=== PATIENT | male | born 1995 | race Caucasian/White ===

== ENCOUNTER 2017-08-11 06:40 | Observation (INO) | payer MEDICAID, OTHER ==
[~2017-08-11] VITALS: Ht 167.6 cm; Wt 59.0 kg
[2017-08-11 06:43] VITALS: BP 120/60; PULSE 64; RESP 16; TEMP 97.4; O2SAT 100
[2017-08-11] MEDS ORDERED: SODIUM CHLORIDE 0.9% FLUSH 10 ML FLUSH IVF PRN (07:15)
--- NOTE | 2017-08-11 07:19 | PD ---
HPI Chief Complaint: Syncope/Near-Syncope Time Seen by Provider: 07:09 Travel History International Travel<30 days: No Contact w/Intl Traveler<30days: No Traveled to known affect area: No History of Present Illness HPI Patient is a 22-year-old otherwise healthy male presents emergency department for evaluation of syncopal episode occurred approximately an hour prior to presentation. Patient states he got up with some left lower quadrant abdominal gas pressure and went to the bathroom, after urinating he palpated his abdomen is standing position in the bathroom, he felt like he was going to faint and then started walking back towards the bed when he fell and next thing he knew he awoke on the ground. [place] by his girlfriend today states he was only out for a few seconds. Denies any chest pain shortness of breath nausea vomiting diarrhea blood in the stool abdominal cramping fevers cough or congestion. Symptoms have resolved, context as above, associated signs and symptoms as above , location is [facility] Past Medical History GERD: Yes Integumentary: Yes (scabies) Tetanus Vaccination: < 5 Years Influenza Vaccination: No Past Surgical History Cholecystectomy: Yes Social History Alcohol Use: No Tobacco Use: No Substance Use: Yes (Marijuana) Allergies-Medications (Allergen,Severity, Reaction): Coded Allergies: No Known Allergies (Unverified , 02/24/14) Reported Meds & Prescriptions Reported Meds & Active Scripts Active No Active Prescriptions or Reported Medications Physical Exam Narrative GENERAL: Well-developed but thin in no obvious distress SKIN: Focused skin assessment warm/dry. There is a small abrasion/excoriation over the right brow, superficial in nature not requiring any repair HEAD: Atraumatic. Normocephalic. EYES: Pupils equal and round. No scleral icterus. No injection or drainage. ENT: No nasal bleeding or discharge. Mucous membranes pink and moist. NECK: Trachea midline. No JVD. CARDIOVASCULAR: Regular rate and rhythm. No murmur appreciated. No murmurs or gallops or rubs. RESPIRATORY: No accessory muscle use. Clear to auscultation. Breath sounds equal bilaterally. GASTROINTESTINAL: Abdomen soft, non-tender, nondistended. Hepatic and splenic margins not palpable. MUSCULOSKELETAL: No obvious deformities. No clubbing. No cyanosis. No edema. NEUROLOGICAL: Awake and alert. Cranial nerves II through XII are grossly intact and nonfocal, 5 out of 5 strength in all 4 extremities. Cerebellar testing negative PSYCHIATRIC: Appropriate mood and affect; insight and judgment normal. Data Data Last Documented VS Vital Signs Date Time Temp Pulse Resp B/P (MAP) Pulse Ox O2 Delivery O2 Flow Rate FiO2 08/11/17 06:43 97.4 64 16 120/60 (80) 100 Orders Orders Electrocardiogram (08/11/17 07:15) Complete Blood Count With Diff (08/11/17 07:15) Comprehensive Metabolic Panel (08/11/17 07:15) Troponin I (08/11/17 07:15) Ecg Monitoring (08/11/17 07:15) Iv Access Insert/Monitor (08/11/17 07:15) Oximetry (08/11/17 07:15) Sodium Chloride 0.9% Flush (Ns Flush) (08/11/17 07:15) Troponin I (08/11/17 09:34) Admit Order (Ed Use Only) (08/11/17 ) Labs Laboratory Tests Test 08/11/17 07:35 08/11/17 09:40 White Blood Count 5.2 TH/MM3 Red Blood Count 4.34 MIL/MM3 Hemoglobin 13.6 GM/DL Hematocrit 38.2 % Mean Corpuscular Volume 87.8 FL Mean Corpuscular Hemoglobin 31.2 PG Mean Corpuscular Hemoglobin Concent 35.5 % Red Cell Distribution Width 13.0 % Platelet Count 168 TH/MM3 Mean Platelet Volume 7.7 FL Neutrophils (%) (Auto) 40.9 % Lymphocytes (%) (Auto) 47.8 % Monocytes (%) (Auto) 9.2 % Eosinophils (%) (Auto) 1.8 % Basophils (%) (Auto) 0.3 % Neutrophils # (Auto) 2.1 TH/MM3 Lymphocytes # (Auto) 2.5 TH/MM3 Monocytes # (Auto) 0.5 TH/MM3 Eosinophils # (Auto) 0.1 TH/MM3 Basophils # (Auto) 0.0 TH/MM3 CBC Comment DIFF FINAL Differential Comment Blood Urea Nitrogen 14 MG/DL Creatinine 0.84 MG/DL Random Glucose 104 MG/DL Total Protein 7.2 GM/DL Albumin 4.0 GM/DL Calcium Level 8.7 MG/DL Alkaline Phosphatase 74 U/L Aspartate Amino Transf (AST/SGOT) 14 U/L Alanine Aminotransferase (ALT/SGPT) 18 U/L Total Bilirubin 0.3 MG/DL Sodium Level 140 MEQ/L Potassium Level 3.8 MEQ/L Chloride Level 105 MEQ/L Carbon Dioxide Level 28.0 MEQ/L Anion Gap 7 MEQ/L Estimat Glomerular Filtration Rate 113 ML/MIN Troponin I LESS THAN 0.02 NG/ML LESS THAN 0.02 NG/ML MDM Medical Decision Making Medical Screen Exam Complete: Yes Emergency Medical Condition: Yes Interpretation(s) Patient EKG reviewed by me, normal sinus rhythm, normal axis and early R-wave transition. There is some ST segment elevation in V2 and V3, more pronounced in V2 with an upsloping pattern, machine interpretation is type III Brugada pattern. This was discussed with Dr. Perez and is unclear as to whether or not this actually represents Brugada. Certainly this is a nonischemic. Differential Diagnosis ACS, PA, arrhythmia, anemia. Clinically significant head injury is excluded by Chappell CT head rules, neck injury excluded by Nexus criteria. Narrative Course Patient room to the emergency primary, further history states that the patient has been having intermittent dizziness and weakness over the past few months, has been very close to passing out in the past but has never passed out before this. His symptoms certainly could be attributed to a vasovagal reaction however this is not 100% as the patient was not bearing down at the time of the interval episode. It did occur shortly after he urinated and could represent micturition syncope. However after discussing with Dr. Perez we agree that the safest course of the action would be for 23 hour observation for further workup and cardiology consult, this recommendation was discussed with the patient and he is agreeable Diagnosis Primary Impression: Syncope Admitting Information Admitting Physician Requests: Observation Scripts No Active Prescriptions or Reported Meds Condition: Stable Regis Dexter MD Aug 11, 2017 07:19
[2017-08-11 07:51] LABS: AUTOMATED NEUTROPHIL # 2.1 TH/MM3 (1.8-7.7); BASOPHIL % 0.3 % (0.0-2.0); EOSINOPHIL # 0.1 TH/MM3 (0-0.4); EOSINOPHIL % 1.8 % (0.0-4.0); HEMATOCRIT 38.2 % (39.0-51.0); HEMOGLOBIN 13.6 GM/DL (13.0-17.0); LYMPH % 47.8 % (9.0-44.0); LYMPHOCYTE # 2.5 TH/MM3 (1.0-4.8); MEAN CELL VOLUME 87.8 FL (80.0-100.0); MEAN CORPUSCULAR HEMOGLOBIN 31.2 PG (27.0-34.0); MEAN CORPUSCULAR HGB CONC 35.5 % (32.0-36.0); MEAN PLATELET VOLUME 7.7 FL (7.0-11.0); MONO % 9.2 % (0.0-8.0); MONOCYTE # 0.5 TH/MM3 (0-0.9); NEUT % 40.9 % (16.0-70.0); PLATELET COUNT 168 TH/MM3 (150-450); RED BLOOD COUNT 4.34 MIL/MM3 (4.50-5.90); WHITE BLOOD COUNT 5.2 TH/MM3 (4.0-11.0)
[2017-08-11 08:04] LABS: ALT (GPT) 18 U/L (12-78); AST (GOT) 14 U/L (15-37); BLOOD UREA NITROGEN 14 MG/DL (7-18); CALCIUM 8.7 MG/DL (8.5-10.1); CHLORIDE 105 MEQ/L (98-107); CREATININE 0.84 MG/DL (0.60-1.30); GLOMERULAR FILTRATION RATE 113 ML/MIN (>89); GLUCOSE,RANDOM 104 MG/DL (74-106); SODIUM (NA) 140 MEQ/L (136-145)
[2017-08-11 08:09] LABS: ALKALINE PHOSPHATASE 74 U/L (45-117); TOTAL BILIRUBIN ADULT 0.3 MG/DL (0.2-1.0); TOTAL PROTEIN 7.2 GM/DL (6.4-8.2); TROPONIN I LESS THAN 0.02 NG/ML (0.02-0.05)
--- NOTE | 2017-08-11 10:31 | HHI.HP ---
HPI Service Family Medicine Primary Care Physician No Primary Care Physician Admission Diagnosis Syncope, Possible Brugada Diagnoses: International Travel<30 Days: No Contact w/Intl Traveler<30days: No Known Affected Area: No History of Present Illness Patient is a 22-year-old male with no significant past medical history presented to the ED today after expressing a syncopal episode this morning around 6 AM. Patient stated he had not slept all night due to work. The syncopal episode occurred as he was coming back from the bathroom to his bedroom. He reports feeling lightheaded and "seeing stars" right before he fainted. Denies ever experiencing a syncopal episodes in the past. Patient's is alert and oriented x3. Pt was unconscious for less than a minute according to girlfriend who was present when the syncopal episode occurred. Denies CP, SOB, convulsions, tongue biting, shaking/jerking of extremities, bowel or urine incontinence. Of note, patient's mother stated that his sister suffers from AV heart block (does not know the type) but his sister has not received any medical intervention for the heart condition. Mother also stated that she has been told in the past that she has abnormal beats. Patient also mentioned that for the past year he has been experiencing chest pain that occurs on and off about every 2 wks lasting a couple of minutes with no other associated sxs ( currently denies CP). Review of Systems Constitutional: DENIES: Fatigue, Fever, Weight loss, Chills Eyes: COMPLAINS OF: Blurred vision Ears, nose, mouth, throat: DENIES: Nasal discharge, Throat pain Respiratory: DENIES: Cough, Shortness of breath Cardiovascular: COMPLAINS OF: Chest pain (not today, CP more than a 1 yr-- within 2 wks every other day, last for couple min no other sxs), Syncope, DENIES : Palpitations, Lower Extremity Edema Gastrointestinal: COMPLAINS OF: Abdominal pain, Diarrhea (chronic issues of loose stools), Nausea, DENIES: Constipation, Vomiting Genitourinary: DENIES: Urinary frequency, Hematuria, Dysuria Integumentary: DENIES: Rash Hematologic/lymphatic: DENIES: Bruising Neurologic: DENIES: Headache, Localized weakness, Seizures Past Family Social History Past Medical History none Past Surgical History gallbladder removed, 11/2013 Reported Medications Reported Meds & Active Scripts Active No Active Prescriptions or Reported Medications Allergies: Coded Allergies: No Known Allergies (Unverified Allergy, Unknown, 08/11/17) Active Ordered Medications Current Medications Medications (Trade) Dose Ordered Sig/Bhargav Route Start Time Stop Time Status Last Admin (NS Flush) 2 ml UNSCH PRN IVF 08/11/17 07:15 Family History Father- CA Sister- AV heart block Patient stated breast CA runs in his family, aunts Social History -Patient lives with mother, sister -He works time buyer, as class a lineman at [employer] -smokes marijuana, 3 times/month, 1 joint -alcohol, 3 beers, 3 times a month, . Does admit to episodes of bench drinking, not often per pt. -Denies illicit drug use. Physical Exam Vital Signs Vital Signs Date Time Temp Pulse Resp B/P (MAP) Pulse Ox O2 Delivery O2 Flow Rate FiO2 08/11/17 06:43 97.4 64 16 120/60 (80) 100 Physical Exam GENERAL: This is a well-nourished, well-developed patient, in no apparent distress. SKIN: No rashes, ecchymoses or lesions. Cool and dry. Small laceration above Right eye brow, that occurred after his fall, repaired in ED. HEAD: Atraumatic. Normocephalic. No temporal or scalp tenderness. EYES: Pupils equal round and reactive. Extraocular motions intact. No scleral icterus. No injection or drainage. ENT: Nose without bleeding, purulent drainage or septal hematoma. Throat without erythema, tonsillar hypertrophy or exudate. Uvula midline. Airway patent. NECK: Trachea midline. No JVD or lymphadenopathy. Supple, nontender, no meningeal signs. CARDIOVASCULAR: Normal S1 and S2. murmurs, gallops, or rubs. RESPIRATORY: Clear to auscultation. Breath sounds equal bilaterally. No wheezes , rales, or rhonchi. GASTROINTESTINAL: Abdomen soft, nondistended, slight tenderness on LLQ. No hepato-splenomegaly, or palpable masses. No guarding. MUSCULOSKELETAL: Extremities without clubbing, cyanosis, or edema. No joint tenderness, effusion, or edema noted. No calf tenderness. Negative Homans sign bilaterally. +2 PD pulses BL. NEUROLOGICAL: Awake and alert. Cranial nerves II through XII intact. Motor and sensory grossly within normal limits. Five out of 5 muscle strength in all muscle groups. Normal speech. Laboratory Laboratory Tests Test 08/11/17 07:35 08/11/17 09:40 White Blood Count 5.2 Red Blood Count 4.34 Hemoglobin 13.6 Hematocrit 38.2 Mean Corpuscular Volume 87.8 Mean Corpuscular Hemoglobin 31.2 Mean Corpuscular Hemoglobin Concent 35.5 Red Cell Distribution Width 13.0 Platelet Count 168 Mean Platelet Volume 7.7 Neutrophils (%) (Auto) 40.9 Lymphocytes (%) (Auto) 47.8 Monocytes (%) (Auto) 9.2 Eosinophils (%) (Auto) 1.8 Basophils (%) (Auto) 0.3 Neutrophils # (Auto) 2.1 Lymphocytes # (Auto) 2.5 Monocytes # (Auto) 0.5 Eosinophils # (Auto) 0.1 Basophils # (Auto) 0.0 CBC Comment DIFF FINAL Differential Comment Blood Urea Nitrogen 14 Creatinine 0.84 Random Glucose 104 Total Protein 7.2 Albumin 4.0 Calcium Level 8.7 Alkaline Phosphatase 74 Aspartate Amino Transf (AST/SGOT) 14 Alanine Aminotransferase (ALT/SGPT) 18 Total Bilirubin 0.3 Sodium Level 140 Potassium Level 3.8 Chloride Level 105 Carbon Dioxide Level 28.0 Anion Gap 7 Estimat Glomerular Filtration Rate 113 Troponin I LESS THAN 0.02 LESS THAN 0.02 Result Diagram: 08/11/1773408/11/17734 Caprini VTE Risk Assessment Caprini VTE Risk Assessment: No/Low Risk (score <= 1) Caprini Risk Assessment Model Point Value = 1 Point Value = 2 Point Value = 3 Point Value = 5 Age 41-60 Minor surgery BMI > 25 kg/m2 Swollen legs Varicose veins or History of unexplained or recurrent spontaneous Oral contraceptives or hormone replacement Sepsis (< 1 month) Serious lung disease, including pneumonia (< 1 month) Abnormal pulmonary function Acute myocardial infarction Congestive heart failure (< 1 month) History of inflammatory bowel disease Medical patient at bed rest Age 61-74 Arthroscopic surgery Major open surgery (> 45 min) Laparoscopic surgery (> 45 min) Malignancy Confined to bed (> 72 hours) Immobilizing plaster cast Central venous access Age >= 75 History of VTE Family history of VTE Factor V Leiden Prothrombin [id number] Lupus anticoagulant Anticardiolipin antibodies Elevated serum homocysteine Heparin-induced thrombocytopenia Other congenital or acquired thrombophilia Stroke (< 1 month) Elective arthroplasty Hip, pelvis, or leg fracture Acute spinal cord injury (< 1 month) Prophylaxis Regimen Total Risk Factor Score Risk Level Prophylaxis Regimen 0-1 Low Early ambulation 2 Moderate Order ONE of the following: *Sequential Compression Device (SCD) *Heparin 5000 units SQ BID 3-4 Higher Order ONE of the following medications: *Heparin 5000 units SQ TID *Enoxaparin/Lovenox 40 mg SQ daily (WT < 150 kg, CrCl > 30 mL/min) *Enoxaparin/Lovenox 30 mg SQ daily (WT < 150 kg, CrCl > 10-29 mL/min) *Enoxaparin/Lovenox 30 mg SQ BID (WT < 150 kg, CrCl > 30 mL/min) AND/OR *Sequential Compression Device (SCD) 5 or more Highest Order ONE of the following medications: *Heparin 5000 units SQ TID (Preferred with Epidurals) *Enoxaparin/Lovenox 40 mg SQ daily (WT < 150 kg, CrCl > 30 mL/min) *Enoxaparin/Lovenox 30 mg SQ daily (WT < 150 kg, CrCl > 10-29 mL/min) *Enoxaparin/Lovenox 30 mg SQ BID (WT < 150 kg, CrCl > 30 mL/min) AND *Sequential Compression Device (SCD) Assessment and Plan Assessment and Plan Patient is a 22-year-old male with no significant cardiac hx presented to the ED today after expressing a syncopal episode this morning around 6 AM. In the ED found to have type 3 Brugada pattern on EKG. Asymptomatic at time of admission. Hemodynamically stable. Patient's sister suffers from AV heart block. Admitted for further w/u. Code Status Full Code Discussed Condition With MISAEL Murray Problem List: (1) Syncope ICD Codes: R55 - Syncope and collapse Status: Acute Plan: Patient with 1 syncopal episode this morning, found to have type 3 Brugada pattern on EKG in the ED. -Sister with AV heart block -VS WNL, labs WNL, normal physical exam, asymptomatic at time of interview -troponins neg x2 -f/u troponin and EKG -f/u echo and UDS, am labs -cardiology consulted, appreciate recommendation (2) Nutrition, metabolism, and development symptoms ICD Codes: R63.8 - Other symptoms and signs concerning food and fluid intake Plan: Fluids: not indicated at this time Electrolytes: WNL, continue to monitor, replete as needed Diet: regular diet Suzanne Aldana MD, R1 Aug 11, 2017 10:31
[2017-08-11] MEDS ORDERED: BISACODYL 10 MG SUPP RECTAL PRN (11:00)
[2017-08-11] MEDS ORDERED: NALOXONE HCL 0.4 MG/ML AMP IV PUSH PRN (11:00)
[2017-08-11] MEDS ORDERED: ONDANSETRON HCL 4 MG/2 ML VIAL IVP PRN (11:00)
[2017-08-11] MEDS ORDERED: SENNOSIDES 8.6 MG TAB PO PRN (11:00)
[2017-08-11] MEDS ORDERED: MAGNESIUM HYDROXIDE SUSP 30 ML CUP PO PRN (11:00)
[2017-08-11] MEDS ORDERED: ACETAMINOPHEN 325 MG TAB PO PRN (11:00)
[2017-08-11] MEDS ORDERED: LACTULOSE SYRUP 20 GM/30 ML CUP PO PRN (11:00)
[2017-08-11] MEDS ORDERED: SODIUM CHLORIDE 0.9% FLUSH 10 ML FLUSH IV FLUSH PRN (11:00)
[2017-08-11 15:14] VITALS: BP 113/62; PULSE 84; RESP 15; O2SAT 100
--- NOTE | 2017-08-11 18:55 | EKG ---
Date Performed: 08/11/2017 Time Performed: 08:08:47 PTAGE: 22 years EKG: Sinus rhythm CANNOT EXCLUDE TYPE 3 BRUGADA PATTERN (NON-DIAGNOSTIC) RHR PRIME BORDERLINE ECG PREVIOUS TRACING : 02/24/2014 18.42 DOCTOR: Linda Briseno Interpretating Date/Time 08/11/2017 18:54:15
[2017-08-11] MEDS: SODIUM CHLORIDE 0.9% FLUSH 10 ML FLUSH IV FLUSH SCH (21:00)
[2017-08-11 21:30] VITALS: PULSE 71
[2017-08-11 21:39] VITALS: BP 109/65; PULSE 70; RESP 18; TEMP 98.1; O2SAT 98
--- NOTE | 2017-08-11 22:12 | MB ---
cc: MICHAEL SCHILLING DO DATE OF CONSULTATION 08/11/17 REASON FOR CONSULTATION Syncope, abnormal EKG. HISTORY OF PRESENT ILLNESS Jalen Villatoro is a pleasant 22-year-old male who presented to [facility] emergency room on August 11, 2017 after a syncopal episode this morning. The patient states that he woke up around 05:30 or 06:00 a.m.. He did not sleep all night due to work. He also has not been eating well because of his work schedule, but has been taking in enough fluids he felt. He decided to go to the bathroom and at that time after urinating he started having some abdominal pain which he felt was gas pain. He pressed on his belly a few times trying to relieve it. At that time, he started feeling like he was going the pass out so he attempted to run back to the bedroom so that he could lay down. He ended up having a syncopal episode and falling down and hitting his head. Apparently, the patient was out for less than a minute. There were no convulsions or loss of bowel or bladder. In speaking to the patient, he remembers the episode and denies chest pain, palpitations or shortness of breath. He did have a graying out to blacking out episode during it. PAST MEDICAL HISTORY Denies. PAST SURGICAL HISTORY Cholecystectomy (2013). ALLERGIES NO KNOWN DRUG ALLERGIES. MEDICATIONS Denies. FAMILY HISTORY Father has a history of cancer. He states that his sister had a history of passing out when she was excited and has questionable AV heart block of unknown type, not requiring a pacemaker. SOCIAL HISTORY The patient lives with his mother and sister. He works full-time as a cook. He drinks a few beers around three times a month. He smokes marijuana about three times a month. Neither one of these were used within 24 hours of the syncopal episode. REVIEW OF SYSTEMS Fourteen systems were reviewed including osteopathic. Pertinent positives and negatives as above otherwise negative. PHYSICAL EXAMINATION VITAL SIGNS: Temperature 97.4, heart rate 64, blood pressure 120/60, respirations 16, pulse ox 100% on room air. GENERAL: The patient appears well. No acute distress, alert awake and oriented x3. HEENT: Extraocular muscles intact. Mucous membranes moist. NECK: Supple. No JVD at 45 degrees. No carotid bruits heard bilaterally. Carotid upstroke is brisk in nature. HEART: Regular rate and rhythm. Positive first and second heart sounds with no murmurs, gallops or rubs. LUNGS: Clear to auscultation bilaterally. No wheezes, rales or rhonchi. ABDOMEN: Soft, nontender, nondistended. No organomegaly noted. EXTREMITIES: No clubbing, cyanosis or edema. Femoral and distal pulses intact bilaterally. NEUROLOGIC: No focal deficits. SKIN: Warm, dry and intact. OSTEOPATHIC: No kyphoscoliosis, lordosis or paraspinal tender points. LABORATORY FINDINGS Hemoglobin 13.6, hematocrit 38.2, platelets 168. Potassium 3.8, BUN 14, creatinine 0.84, troponin negative x2. UDS negative for drugs. CARDIOLOGY STUDIES Electrocardiogram (August 11, 2017 at 08:08) sinus rhythm, incomplete right bundle branch block, no acute ST-T wave changes. IMPRESSION 1. Syncopal episode. 2. Abnormal EKG. 3. Marijuana use. RECOMMENDATIONS 1. Mr. Villatoro presented with a syncopal episode which may be due to either micturition, syncope versus vasovagal due to his abdominal pain. 2. I was consulted due to the syncopal episode, but also an EKG which was read as possible type 3 Brugada pattern. Overall, I do not believe that this is a Brugada pattern on his EKG and more likely just incomplete right bundle branch block as previously seen. 3. We will check a 2-D echo to look at his overall left ventricular function, cardiac structure and possible valvopathies. 4. We will watch him on telemetry for 24 hours in, if stable in the morning, may be discharged home. 5. He should follow up with cardiology for consideration of long-term rhythm analysis with an event monitor or a loop recorder, specifically if he has further episodes. Further recommendations will be made based on the hospital course. Thank you for allowing me to see Reinaldo Villatoro. If there are any questions, please do not hesitate to call. MEDICATIONS The patient Michael Schilling DO VGP/SA /9:22 PM /9:42 PM
[2017-08-11 23:50] VITALS: PULSE 81
[2017-08-11 23:57] VITALS: BP 121/54; PULSE 71; RESP 18; TEMP 98.2; O2SAT 97
[2017-08-12 03:32] VITALS: PULSE 63
[2017-08-12 03:50] VITALS: BP 110/59; PULSE 84; RESP 18; TEMP 98.3; O2SAT 97
[2017-08-12 08:00] VITALS: BP 107/63; PULSE 70; RESP 18; TEMP 97.8; O2SAT 98
[2017-08-12 08:13] VITALS: PULSE 83
[2017-08-12 08:36] LABS: AUTOMATED NEUTROPHIL # 2.8 TH/MM3 (1.8-7.7); BASOPHIL % 0.4 % (0.0-2.0); EOSINOPHIL # 0.1 TH/MM3 (0-0.4); EOSINOPHIL % 1.8 % (0.0-4.0); HEMATOCRIT 40.3 % (39.0-51.0); HEMOGLOBIN 14.2 GM/DL (13.0-17.0); LYMPH % 38.3 % (9.0-44.0); LYMPHOCYTE # 2.1 TH/MM3 (1.0-4.8); MEAN CORPUSCULAR HEMOGLOBIN 31.1 PG (27.0-34.0); MEAN CORPUSCULAR HGB CONC 35.4 % (32.0-36.0); MEAN PLATELET VOLUME 7.7 FL (7.0-11.0); MONO % 8.1 % (0.0-8.0); MONOCYTE # 0.4 TH/MM3 (0-0.9); NEUT % 51.4 % (16.0-70.0); PLATELET COUNT 172 TH/MM3 (150-450); RED BLOOD COUNT 4.58 MIL/MM3 (4.50-5.90); WHITE BLOOD COUNT 5.4 TH/MM3 (4.0-11.0)
[2017-08-12] MEDS ORDERED: DOCUSATE SODIUM 50 MG/SENNA 8.6 MG TAB PO SCH (09:00)
[2017-08-12] MEDS: SODIUM CHLORIDE 0.9% FLUSH 10 ML FLUSH IV FLUSH SCH (09:00)
[2017-08-12 09:06] LABS: BICARBONATE 27.9 MEQ/L (21.0-32.0); CALCIUM 9.5 MG/DL (8.5-10.1); CREATININE 0.79 MG/DL (0.60-1.30)
--- NOTE | 2017-08-12 11:00 | HHI.FPPN ---
Subjective Remarks Patient seen and examined at bedside. No acute events overnight. Patients states he is doing well. Denies CP, SOB, dizziness or N/V. Abdominal pain resolved after he had a BM yesterday. (Suzanne Aldana MD, R1) Objective Vitals Vital Signs Date Time Temp Pulse Resp B/P (MAP) Pulse Ox O2 Delivery O2 Flow Rate FiO2 08/12/17 08:13 83 08/12/17 08:00 97.8 70 18 107/63 (78) 98 08/12/17 03:50 98.3 84 18 110/59 (76) 97 08/12/17 03:32 63 08/11/17 23:57 98.2 71 18 121/54 (76) 97 08/11/17 23:50 81 08/11/17 21:39 98.1 70 18 109/65 (80) 98 08/11/17 21:30 71 08/11/17 17:11 08/11/17 15:14 84 15 113/62 (79) 100 Room Air (Suzanne Aldana MD, R1) Result Diagram: 08/12/17 0750 08/12/17 0750 Objective Remarks GENERAL: This is a well-nourished, well-developed patient, in no apparent distress. SKIN: No rashes, ecchymoses or lesions. Cool and dry. Small laceration above Right eye brow, that occurred after his fall, repaired in ED. HEAD: Atraumatic. Normocephalic. No temporal or scalp tenderness. EYES: Pupils equal round and reactive. Extraocular motions intact. No scleral icterus. No injection or drainage. ENT: Nose without bleeding, purulent drainage or septal hematoma. Throat without erythema, tonsillar hypertrophy or exudate. Uvula midline. Airway patent. NECK: Trachea midline. No JVD or lymphadenopathy. Supple, nontender, no meningeal signs. CARDIOVASCULAR: Normal S1 and S2. murmurs, gallops, or rubs. RESPIRATORY: Clear to auscultation. Breath sounds equal bilaterally. No wheezes , rales, or rhonchi. Chest noted for mild pectus excavatum. GASTROINTESTINAL: Abdomen soft, nondistended, non-tender, No hepato-splenomegaly , or palpable masses. No guarding. MUSCULOSKELETAL: Extremities without clubbing, cyanosis, or edema. No joint tenderness, effusion, or edema noted. No calf tenderness. Negative Homans sign bilaterally. +2 PD pulses BL. NEUROLOGICAL: Awake and alert. Cranial nerves II through XII intact. Motor and sensory grossly within normal limits. Five out of 5 muscle strength in all muscle groups. Normal speech. (Suzanne Aldana MD, R1) A/P Assessment and Plan Patient is a 22-year-old male with no significant cardiac hx presented to the ED today after expressing a syncopal episode this morning around 6 AM. In the ED found to have type 3 Brugada pattern on EKG. Asymptomatic at time of admission. Hemodynamically stable. Patient's sister suffers from AV heart block. Admitted for further w/u. Discharge Planning Anticipate discharge pending echo results. (Suzanne Aldana MD, R1) Attending Attestation Round table discussion about patients admission were held with Dr Painting, Dr Yuan, Dr Anna and Dr Aldana Patient was examined with team Agree with above documentation See Orders (Brendan Murray MD) Problem List: (1) Syncope ICD Codes: R55 - Syncope and collapse Status: Acute Plan: Patient with 1 syncopal episode yesterday morning, found to have type 3 Brugada pattern on EKG in the ED. -Sister with AV heart block -VS WNL, labs WNL, normal physical exam, asymptomatic - mild pectus excavatum noted on exam, can be reason for abnormal EKG reading. -troponins neg x3 -echo results pending -UDS negative -cardiology consulted, appreciate recommendation -Cardiology does not believe pt has type 3 Brugada pattern based on EKG during this admission. Most likely incomplete right bundle branch block as previously seen. -f/u echo results -Pt Ok to be discharge today if stable - Pt to f/u outpatient with cardiology for long-term rhythm analysis with event monitor (2) Nutrition, metabolism, and development symptoms ICD Codes: R63.8 - Other symptoms and signs concerning food and fluid intake Plan: Fluids: not indicated at this time Electrolytes: WNL, continue to monitor, replete as needed Diet: regular diet (Suzanne Aldana MD, R1) Problem Qualifiers (1) Syncope: Qualified Codes: R55 - Syncope and collapse Suzanne Aldana MD, R1 Aug 12, 2017 11:00 Brendan Murray MD Aug 12, 2017 18:16
[2017-08-12 11:40] VITALS: BP 113/61; PULSE 72; RESP 18; TEMP 98; O2SAT 99
--- NOTE | 2017-08-12 12:17 | HHI.DCPOC ---
Discharge Care Plan Diagnosis: (1) Syncope Goals to Promote Your Health * To prevent worsening of your condition and complications * To maintain your health at the optimal level Directions to Meet Your Goals Take your medications as prescribed Follow your dietary instruction Follow activity as directed Keep your appointments as scheduled Take your immunizations and boosters as scheduled If your symptoms worsen call your PCP, if no PCP go to Urgent Care Center or Emergency Room Smoking is Dangerous to Your Health. Avoid second hand smoke Call the 24-hour hour crisis hotline for domestic abuse at Jalen Painting MD, R3 Aug 12, 2017 12:17
--- NOTE | 2017-08-12 13:18 | ECHRPT ---
Indication: SYNCOPE CONCLUSIONS Normal left ventricular size. Wall thickness is normal. The left ventricular systolic function is low normal with an estimated ejection fraction in the rang e of 50- 55%. BP: / HR: Rhythm: MEASUREMENTS (Male / Female) Normal Values Technical Quality:Good 2D ECHO LV Diastolic Diameter PLAX 4.5 cm 4.2 - 5.9 / 3.9 - 5.3 cm LV Systolic Diameter PLAX 3.3 cm IVS Diastolic Thickness 0.9 cm 0.6 - 1.0 / 0.6 - 0.9 cm LVPW Diastolic Thickness 0.6 cm 0.6 - 1.0 / 0.6 - 0.9 cm LV Relative Wall Thickness 0.3 RV Internal Dim ED PLAX 1.7 cm M-MODE Aortic Root Diameter MM 2.9 cm AV Cusp Separation MM 2.1 cm DOPPLER Mitral E Point Velocity 77.0 cm/s Mitral A Point Velocity 49.9 cm/s Mitral E to A Ratio 1.5 TR Peak Velocity 141.0 cm/s TR Peak Gradient 8.0 mmHg FINDINGS LEFT VENTRICLE Normal left ventricular size. Wall thickness is normal. The left ventricular systolic function is low normal with an estimated ejection fraction in the rang e of 50- 55%. RIGHT VENTRICLE Normal right ventricular size and systolic function. LEFT ATRIUM The left atrial size is normal. RIGHT ATRIUM The right atrial size is normal. ATRIAL SEPTUM Normal atrial septal thickness without atrial level shunting by limited color doppler interrogation. AORTA The aortic root and proximal ascending aorta are normal in size on limited imaging. MITRAL VALVE Structurally normal mitral valve. No mitral valve stenosis or regurgitation. AORTIC VALVE Trileaflet aortic valve. No aortic valve stenosis or regurgitation. TRICUSPID VALVE Structurally normal tricuspid valve. No tricuspid valve stenosis or regurgitation. PULMONARY VALVE The pulmonary valve is not well visualized. VESSELS The inferior vena cava is normal in size. PERICARDIUM No pericardial effusion. Jake Cormier MD, FACC, [facility] (Electronically Signed) Final Date:12 August 2017 13:17
--- NOTE | 2017-08-12 15:41 | EKG ---
Date Performed: 08/11/2017 Time Performed: 15:29:16 PTAGE: 22 years EKG: Sinus rhythm WITH SINUS ARRHYTHMIA POSSIBLE RIGHT VENTRICULAR CONDUCTION DELAY BORDERLINE ECG PREVIOUS TRACING : 08/11/2017 08.08 DOCTOR: Nikhil Locke Interpretating Date/Time 08/12/2017 15:40:26
== END 2017-08-12 15:58 | disposition home or self-care (01) ==
LOC: NEPC 06:40 → NEDA 10:10 → NEPHCDU 17:29
PROVIDERS: ADMIT Family Medicine; ATTEND Family Medicine
DX: R55 Syncope and collapse (principal); R63.8 Other symptoms and signs concerning food and fluid intake; R42 Dizziness and giddiness; R07.9 Chest pain, unspecified; R10.9 Unspecified abdominal pain; K21.9 Gastro-esophageal reflux disease without esophagitis; I49.9 Cardiac arrhythmia, unspecified; Q67.6 Pectus excavatum; R94.31 Abnormal electrocardiogram [ECG] [EKG]; I45.10 Unspecified right bundle-branch block; F12.90 Cannabis use, unspecified, uncomplicated
CPT/HCPCS: 12011; 80048; 80053; 80307; 84484; 85025; 93005; 93306; 99285; G0378